=== PATIENT | female | born 1975 | race Two or more races ===

== ENCOUNTER 2018-07-04 10:08 | Day surgery (SDC) | payer OTHER | END 2018-07-04 15:10 | disposition home or self-care (01) | LOC: AMB-ENDOS 10:08 | DX: K62.5 Hemorrhage of anus and rectum (principal); K64.8 Other hemorrhoids; Z12.11 Encounter for screening for malignant neoplasm of colon ==

== ENCOUNTER 2020-02-21 10:45 | Inpatient (IN) | payer OTHER ==
[~2020-02-21] VITALS: Ht 162.6 cm; Wt 72.6 kg
[2020-02-21] MEDS ORDERED: DURAGE (12:59)
[2020-02-21] MEDS ORDERED: DOLOGESIC 500-1 EACH (14:01)
== END 2020-03-03 12:30 | disposition home or self-care (01) | DRG 331 ==
LOC: SURH 02-28 07:00 → O/R 02-28 07:22 → SURH 02-28 10:45 → SURG 02-28 19:24
PROVIDERS: ADMIT Colon & Rectal Surgery; ATTEND Colon & Rectal Surgery
PROC: 0DQP4ZZ Repair Rectum, Percutaneous Endoscopic Approach (ICD-10-PCS; 2020-02-28)
PROC: 0DJD8ZZ Inspection of Lower Intestinal Tract, Via Natural or Artificial Opening Endoscopic (ICD-10-PCS; 2020-02-28)
PROC: 0DTN4ZZ Resection of Sigmoid Colon, Percutaneous Endoscopic Approach (ICD-10-PCS; principal; 2020-02-28 07:00)
DX: K62.3 Rectal prolapse (principal); K59.02 Outlet dysfunction constipation; Z86.010 Personal history of colon polyps; Z20.828 Contact with and (suspected) exposure to other viral communicable diseases

== ENCOUNTER 2020-07-27 10:08 | Outpatient (CLI) | payer OTHER ==
[~2020-07-27 10:08] MED LIST: DOLOGESIC 500-1 EACH; DURAGE
== END 2020-07-27 15:00 | disposition home or self-care (01) ==
LOC: LAB 10:08
PROVIDERS: ATTEND Colon & Rectal Surgery
DX: K62.5 Hemorrhage of anus and rectum (principal); K59.09 Other constipation; N39.0 Urinary tract infection, site not specified; Z11.59 Encounter for screening for other viral diseases; Z20.828 Contact with and (suspected) exposure to other viral communicable diseases; R10.31 Right lower quadrant pain; R53.81 Other malaise

== ENCOUNTER 2020-07-28 10:44 | Outpatient (CLI) | payer OTHER | END 2020-07-28 11:05 | disposition home or self-care (01) | LOC: TOM 10:44 | PROVIDERS: ATTEND Colon & Rectal Surgery | DX: K59.09 Other constipation (principal); R10.31 Right lower quadrant pain ==